=== PATIENT | male | born 1975 | race Caucasian/White ===

== ENCOUNTER 2017-03-30 20:28 | Emergency (ER) | payer OTHER ==
[~2017-03-30] VITALS: Ht 165.1 cm; Wt 102.3 kg
[2017-03-30 20:34] VITALS: TEMP 37.1; Ht 165.1 cm; Wt 102.3 kg
[2017-03-30] MEDS ORDERED: ASPIRIN 81 MG CHEW PO STA (20:54)
--- NOTE | 2017-03-30 20:58 | EMERGENCY ROOM VISIT NOTE ---
History Report prepared by Windy: Elizabeth Phillips Under the Supervision of: Dr. Meet Barrett M.D. First contact with patient: 20:43 Chief Complaint: CARDIAC ASSESSMENT Stated Complaint: CHEST PAIN, LEFT ARM PAIN- CARDIAC HX History of Present Illness The patient is a 41 year old male who presents to the Emergency Room with complaints of intermittent left sided chest pain beginning 3 weeks ago. The patient notes that his pain radiates to his left arm. The patient has a history of two heart attacks and stents in place. He had his stents put in at [place]. He reports that this pain doesn't feel like his previous heart attacks. His pain worsens when he holds his arm above his head. The patient reports that icy hot relieves his pain. He notes taking nitroglycerin and states it didn't help his pain. The patient was seen at [facility] 5 days ago where he had an EKG and chest X-ray done. The patient is on Plavix and denies missing doses. The patient smokes 10 cigarettes a day. He reports taking aspirin today. Source of History: patient Onset: 3 weeks ago Position: chest Quality: other (radiating) Timing: intermittent Modifying Factors (Worsening): other (moving his arm) Modifying Factors (Relieving): other (icy hot) Note: Pt notes the pain radiates to his left arm. Review of Systems See HPI for pertinent positives & negatives. A total of 10 systems reviewed and were otherwise negative. Past Medical & Surgical Medical Problems: (1) Heart attack Family History No pertinent family history stated. Social History Smoking Status: Current Every Day Smoker Marital Status: in relationship Current/Historical Medications Scheduled Aspirin (Aspirin Ec), 81 MG PO DAILY Atorvastatin (Lipitor), 80 MG PO DAILY Clopidogrel (Plavix), 75 MG PO DAILY Isosorbide Mononitrate (Isosorbide Mononitrate ER), 30 MG PO DAILY Lisinopril (Zestril), 2.5 MG PO DAILY Metoprolol Succinate (Metoprolol Succinate ER), 25 MG PO DAILY Allergies Coded Allergies: Tramadol (Verified Allergy, Intermediate, Nausea/Vomiting, 03/30/17) Ampicillin (Verified Allergy, Unknown, Unknown, 03/30/17) Physical Exam Vital Signs Date Time Temp Pulse Resp B/P (MAP) Pulse Ox O2 Delivery O2 Flow Rate FiO2 03/30/17 23:17 81 18 109/63 96 03/30/17 21:17 82 03/30/17 20:59 93 Room Air 03/30/17 20:54 95 Room Air 03/30/17 20:34 37.1 92 20 150/85 93 Room Air Physical Exam GENERAL: Patient is a healthy-appearing well-nourished male HEAD: Normocephalic atraumatic EYES: Ocular movements intact pupils equal and react to light OROPHARYNX mucous membranes are moist no exudates present no erythema or edema present NECK: Supple no nuchal rigidity CHEST: Good equal expansion. Reproducible pain when the patient moves his arm above his head. LUNGS: Clear and equal to auscultation CARDIAC: Normal S1 and S2 ABDOMEN: Soft nontender no guarding BACK: No CVA tenderness EXTREMITIES: No pain upon palpation normal muscle strength in all groups no clubbing cyanosis or edema NEURO: Patient is following commands and answering questions appropriately. Alert and oriented x3 Cranial Nerves 2-12 grossly intact Medical Decision & Procedures ER Provider Diagnostic Interpretation: Radiology results as stated below per my review and radiologist interpretation: CHEST ONE VIEW PORTABLE FINDINGS: Cardiomediastinal silhouette normal. Diffuse asymmetric density in the right lung may relate to overlapping soft tissue structures. Suggestion of mild bronchial wall thickening. No other focal infiltrate. No large pleural effusion or pneumothorax. Osseous structures normal. Upper abdomen normal. IMPRESSION: 1. Mild bronchial wall thickening could suggest bronchitis/viral bronchiolitis or reactive airways disease. No focal infiltrate to suggest pneumonia. Electronically signed by: Josr Messina M.D. (CHEST FOR PE) ANGIO WITH FINDINGS: Brush Washer topogram: Unremarkable. Pulmonary vasculature: The study is adequate for assessment of the pulmonary vascular tree. No filling defect within the pulmonary arteries to suggest embolus. Main pulmonary artery is mildly enlarged measuring 3.3 cm in maximal transverse dimension. No flattening of the interventricular septum. No intracardiac intracardiac filling defect. No reflux of contrast into the hepatic veins. Remaining chest: On soft tissue windows, bilateral gynecomastia. Normal thyroid. No axillary, supraclavicular, hilar, or mediastinal lymphadenopathy. Normal aorta. Normal heart size. Coronary artery calcification. No pericardial or pleural effusion. Upper abdomen normal. On lung windows, respiratory artifact mildly degrades evaluation of the lungs. Suggestion of groundglass centrilobular nodularity at the upper lobes. Mosaic attenuation could suggest small airways disease. No other focal infiltrate. Airways patent. On bone windows, normal osseous structures. IMPRESSION: 1. No evidence of pulmonary embolus. 2. Suggestion of groundglass centrilobular nodularity at the upper lobes. In the setting of a smoking history, this could suggest respiratory bronchiolitis. No convincing evidence of infection. 3. Mild enlargement of the main pulmonary artery could suggest pulmonary hypertension. Electronically signed by: Josr Messina M.D. Laboratory Results 03/30/17 20:50 Red Blood Count 4.66, Mean Corpuscular Volume 95.3, Mean Corpuscular Hemoglobin 33.0, Mean Corpuscular Hemoglobin Concent 34.7, Mean Platelet Volume 10.5, Neutrophils (%) (Auto) 77.0, Lymphocytes (%) (Auto) 14.1, Monocytes (%) (Auto) 7.0, Eosinophils (%) (Auto) 1.5, Basophils (%) (Auto) 0.2, Neutrophils # (Auto) 12.35, Lymphocytes # (Auto) 2.26, Monocytes # (Auto) 1.12, Eosinophils # (Auto) 0.24, Basophils # (Auto) 0.03 03/30/17 20:50 Test 03/30/17 20:50 03/30/17 21:05 03/30/17 21:06 03/30/17 22:41 White Blood Count 16.04 K/uL (4.8-10.8) Red Blood Count 4.66 M/uL (4.7-6.1) Hemoglobin 15.4 g/dL (14.0-18.0) Hematocrit 44.4 % (42-52) Mean Corpuscular Volume 95.3 fL (80-100) Mean Corpuscular Hemoglobin 33.0 pg (25-34) Mean Corpuscular Hemoglobin Concent 34.7 g/dl (32-36) Platelet Count 230 K/uL (130-400) Mean Platelet Volume 10.5 fL (7.4-10.4) Neutrophils (%) (Auto) 77.0 % Lymphocytes (%) (Auto) 14.1 % Monocytes (%) (Auto) 7.0 % Eosinophils (%) (Auto) 1.5 % Basophils (%) (Auto) 0.2 % Neutrophils # (Auto) 12.35 K/uL (1.4-6.5) Lymphocytes # (Auto) 2.26 K/uL (1.2-3.4) Monocytes # (Auto) 1.12 K/uL (0.11-0.59) Eosinophils # (Auto) 0.24 K/uL (0-0.5) Basophils # (Auto) 0.03 K/uL (0-0.2) RDW Standard Deviation 43.7 fL (36.4-46.3) RDW Coefficient of Variation 12.5 % (11.5-14.5) Immature Granulocyte % (Auto) 0.2 % Immature Granulocyte # (Auto) 0.04 K/uL (0.00-0.02) Est Creatinine Clear Calc Drug Dose 104.0 ml/min Estimated GFR () 103.1 Estimated GFR (Non- 89.0 BUN/Creatinine Ratio 15.0 (10-20) Calcium Level 8.8 mg/dl (8.5-10.1) Total Bilirubin 0.4 mg/dl (0.2-1) Direct Bilirubin 0.1 mg/dl (0-0.2) Aspartate Amino Transf (AST/SGOT) 19 U/L (15-37) Alanine Aminotransferase (ALT/SGPT) 34 U/L (12-78) Alkaline Phosphatase 84 U/L (45-117) Total Creatine Kinase 134 U/L (39-308) Creatine Kinase MB 0.8 ng/ml (0.5-3.6) Creatine Kinase MB Ratio 0.6 (0-3.0) Troponin I < 0.015 ng/ml (0-0.045) Total Protein 7.6 gm/dl (6.4-8.2) Albumin 3.7 gm/dl (3.4-5.0) Lipase 124 U/L (73-393) Bedside D-Dimer 211 ng/mlFEU (0-450) Bedside Hemoglobin 15.3 g/dl (14.0-18.0) Bedside Hematocrit 45 % (42-52) Bedside Sodium 141 mEq/L (135-144) Bedside Potassium 4.2 mEq/L (3.3-5.0) Bedside Chloride 102 mEq/L (101-112) Bedside Total CO2 29 mEq/l (24-31) Anion Gap 15.0 mmol/L (16-25) Bedside Blood Urea Nitrogen 19 mg/dl (7-18) Bedside Creatinine 1.0 mg/dl (0.6-1.3) Bedside Glucose (other) 108 mg/dl (70-99) Bedside Ionized Calcium (An) 1.17 mmol/l (1.12-1.32) Bedside Troponin I < 0.030 ng/ml (0-0.045) Labs reviewed by ED physician. Medications Administered Medications (Trade) Dose Ordered Sig/Ana Route Start Time Stop Time Status Last Admin Dose Admin Aspirin (Aspirin Chew) 324 mg NOW STAT PO 03/30/17 20:54 03/30/17 20:56 DC 03/30/17 21:02 324 MG Albuterol Sulfate (Ventolin 0.5% 2.5MG/0.5ML Neb) 2.5 mg NOW STAT INH 03/30/17 21:23 03/30/17 21:24 DC 03/30/17 21:57 2.5 MG Morphine Sulfate (MoRPHine SULFATE INJ) 10 mg NOW STAT IV 03/30/17 21:30 03/30/17 21:32 DC 03/30/17 21:57 10 MG Ondansetron HCl (Zofran Inj) 4 mg NOW STAT IV 03/30/17 21:30 03/30/17 21:32 DC 03/30/17 21:57 4 MG Albuterol Sulfate (Ventolin 0.5% 2.5MG/0.5ML Neb) 2.5 mg NOW STAT INH 03/30/17 22:24 03/30/17 22:25 DC 03/30/17 22:24 2.5 MG Ketorolac Tromethamine (Toradol Inj) 30 mg NOW STAT IV 03/30/17 22:56 03/30/17 22:57 DC 03/30/17 23:13 30 MG Hydromorphone HCl (Dilaudid Inj) 1 mg NOW STAT IV 03/30/17 22:56 03/30/17 22:57 DC 03/30/17 23:13 1 MG ECG Indication: chest pain Rate (beats per minute): 88 Rhythm: normal sinus Findings: no acute ischemic change, no ectopy ED Course 2043: Past medical records reviewed. The patient was evaluated in room A2. A complete history and physical examination was performed. 2053: Aspirin 324 mg PO. 2122: Albuterol Sulfate 2.5 mg INH. 2129: Zofran Inj 4 mg IV, Morphine Sulfate 10 mg IV. 2223: Albuterol Sulfate 2.5 mg INH. 2251: I offered admission to the patient, he declined and would like to go home. 2255: Dilaudid Inj 1 mg IV, Toradol Inj 30 mg IV. 2304: Upon reexamination the patient is resting. I discussed results and treatment plan with the patient. He verbalizes agreement and understanding. The patient is ready for discharge. Medical Decision Differential diagnosis: Etiologies such as cardiac ischemia, aortic dissection, pulmonary embolism, pneumonia, pneumothorax, musculoskeletal, infections, pericarditis, myocarditis , esophageal rupture, gastrointestinal, as well as others were entertained. This is a 41-year-old male who presents emergency department complaining of left shoulder pain. The patient was evaluated in [facility] for this chest pain/shoulder pain however they told him it was not cardiac related. In the emergency department the patient had CBC drawn along with serial EKGs and serial troponins. Serial EKGs as well as serial troponins are normal. The patient does have an elevation in his white blood count cell count however he is afebrile. The pain appears to be related to movement and it appears to be related to the patient's rotator cuff. For this reason I did place the patient in a sling. He was given 324 mg of aspirin, morphine, Dilaudid for the pain. He was sent for a chest CT which did not show any acute process. I offered admission to the patient however he wishes to be discharged home. I strongly recommended he follow-up with cardiology at [facility] [address] this week and to have no strenuous activity until follow-up. I also recommended that the patient follow- up with orthopedics. Family was in agreement with the treatment plan. Blood Pressure Screening Patient's blood pressure: Elevated blood pressure Blood pressure disposition: Referred to PCP Impression Primary Impression: Shoulder pain, left Scribe Attestation The scribe's documentation has been prepared under my direction and personally reviewed by me in its entirety. I confirm that the note above accurately reflects all work, treatment, procedures, and medical decision making performed by me. Departure Information Dispostion Home / Self-Care Referrals Cody Reynolds PA-C (PCP) Forms IMPORTANT VISIT INFORMATION Patient Instructions ED Shoulder Pain Isis FERNANDEZ [facility] Additional Instructions Follow up with DR Kiran's office this week (Cards) Follow up with Dr Olson (Ortho) You were found to have an elevated blood pressure today (>120 sytolic or >90 diastolic). Per medicare guidelines, you need to follow up with this blood pressure screening with your Primary Care Physician (PCP). For a new PCP call [phone]. You received narcotic or benzodiazepene medication while in the emergency room today. This is an addictive medication that may cause drowziness as well as constipation. Do not drive, operate heavy machinery, or drink alcohol under the influence of this medication. You have been examined and treated today on an emergency basis only. This is not a substitute for, or an effort to provide, complete comprehensive medical care. It is impossible to recognize and treat all injuries or illnesses in a single emergency department visit. It is therefore important that you follow up closely with Dr Reynolds. Call as soon as possible for an appointment. Thank you for your time and consideration. I look forward to speaking with you again soon. Please don't hesitate to call us if you have any questions. Problem Qualifiers Primary Impression: Shoulder pain, left Chronicity: acute Qualified Codes: M25.512 - Pain in left shoulder
[2017-03-30 20:59] VITALS: O2SAT 93
[2017-03-30 21:12] LABS: BASO % 0.2 %; BASO ABS # 0.03 K/uL (0-0.2); COMPLETE YES; EOS % 1.5 %; HEMATOCRIT 44.4 % (42-52); IG% 0.2 %; LYMPH % 14.1 %; LYMPH ABS # 2.26 K/uL (1.2-3.4); MEAN CELL VOLUME 95.3 fL (80-100); MEAN CORPUSCULAR HGB CONC 34.7 g/dl (32-36); MEAN PLATELET VOLUME 10.5 fL (7.4-10.4); PLATELET COUNT 230 K/uL (130-400); RED BLOOD COUNT 4.66 M/uL (4.7-6.1); WHITE BLOOD COUNT 16.04 K/uL (4.8-10.8)
[2017-03-30 21:19] LABS: ISTAT HEMOGLOBIN 15.3 g/dl (14.0-18.0); ISTAT IONIZED CALCIUM 1.17 mmol/l (1.12-1.32)
[2017-03-30 21:22] LABS: ALT/SGPT 34 U/L (12-78); BLOOD UREA NITROGEN 16 mg/dl (7-18); CALCIUM 8.8 mg/dl (8.5-10.1); CARBON DIOXIDE 27 mmol/L (21-32); CHLORIDE 105 mmol/L (98-107); CREATININE 1.05 mg/dl (0.60-1.40); GLUCOSE 113 mg/dl (70-99); POTASSIUM 4.1 mmol/L (3.5-5.1); SODIUM 141 mmol/L (136-145)
[2017-03-30] MEDS ORDERED: ALBUTEROL 0.5% NEB SOLN 2.5 MG/0.5 ML VIAL INH STA ×2 (21:23→22:24)
[2017-03-30 21:27] LABS: ALKALINE PHOSPHATASE 84 U/L (45-117); AST/SGOT 19 U/L (15-37); CKMB/CK RATIO 0.6 (0-3.0)
--- NOTE | 2017-03-30 21:29 | DIAGNOSTIC IMAGING REPORT ---
CHEST ONE VIEW PORTABLE CLINICAL HISTORY: 41 years-old Male presenting with CHEST PAIN. TECHNIQUE: Portable upright AP view of the chest was obtained. COMPARISON: None. FINDINGS: Cardiomediastinal silhouette normal. Diffuse asymmetric density in the right lung may relate to overlapping soft tissue structures. Suggestion of mild bronchial wall thickening. No other focal infiltrate. No large pleural effusion or pneumothorax. Osseous structures normal. Upper abdomen normal. IMPRESSION: 1. Mild bronchial wall thickening could suggest bronchitis/viral bronchiolitis or reactive airways disease. No focal infiltrate to suggest pneumonia. Electronically signed by: Josr Messina M.D. 03/30/2017 9:28 PM Dictated Date/Time: 03/30/2017 9:26 PM
[2017-03-30] MEDS ORDERED: MoRPHine SULFATE 10 MG/ML CARP/VIAL IV STA (21:30)
[2017-03-30] MEDS ORDERED: ONDANSETRON INJ 2 MG/ML 2 ML VIAL IV STA (21:30)
--- NOTE | 2017-03-30 22:19 | DIAGNOSTIC IMAGING REPORT ---
(CHEST FOR PE) ANGIO WITH CLINICAL HISTORY: 41 years-old Male presenting with ^Pt c/o left sided chest pain. TECHNIQUE: Multidetector CT angiography of the chest was performed after administration of intravenous contrast. 3-D volumetric and/or maximum intensity projection (MIP) images were subsequently reconstructed for review. IV contrast: 105 mL of Optiray 320. A dose lowering technique was used consistent with the principles of ALARA (as low as reasonably achievable). COMPARISON: Chest x-ray from earlier the same day. CT DOSE (mGy.cm): The estimated cumulative dose is 698.51 mGy.cm. FINDINGS: Corn Chip Maker topogram: Unremarkable. Pulmonary vasculature: The study is adequate for assessment of the pulmonary vascular tree. No filling defect within the pulmonary arteries to suggest embolus. Main pulmonary artery is mildly enlarged measuring 3.3 cm in maximal transverse dimension. No flattening of the interventricular septum. No intracardiac intracardiac filling defect. No reflux of contrast into the hepatic veins. Remaining chest: On soft tissue windows, bilateral gynecomastia. Normal thyroid. No axillary, supraclavicular, hilar, or mediastinal lymphadenopathy. Normal aorta. Normal heart size. Coronary artery calcification. No pericardial or pleural effusion. Upper abdomen normal. On lung windows, respiratory artifact mildly degrades evaluation of the lungs. Suggestion of groundglass centrilobular nodularity at the upper lobes. Mosaic attenuation could suggest small airways disease. No other focal infiltrate. Airways patent. On bone windows, normal osseous structures. IMPRESSION: 1. No evidence of pulmonary embolus. 2. Suggestion of groundglass centrilobular nodularity at the upper lobes. In the setting of a smoking history, this could suggest respiratory bronchiolitis. No convincing evidence of infection. 3. Mild enlargement of the main pulmonary artery could suggest pulmonary hypertension. Electronically signed by: Josr Messina M.D. 03/30/2017 10:18 PM Dictated Date/Time: 03/30/2017 10:06 PM
[2017-03-30] MEDS ORDERED: ATOR-26 PO (22:50)
[2017-03-30] MEDS ORDERED: LISI-789 PO (22:50)
[2017-03-30] MEDS ORDERED: CLOP1TAB15 PO (22:50)
[2017-03-30] MEDS ORDERED: TPRSR/25 PO (22:50)
[2017-03-30] MEDS ORDERED: ASPI81TA28 PO (22:50)
[2017-03-30] MEDS ORDERED: IMDSR30 PO (22:50)
[2017-03-30] MEDS ORDERED: KETOROLAC TROMETHAMINE 30 MG/ML VIAL IV STA (22:56)
[2017-03-30] MEDS ORDERED: HYDROmorphone INJ 1 MG/ML SYR IV STA (22:56)
[2017-03-30 23:17] VITALS: BP 109/63; PULSE 81; O2SAT 96
== END 2017-03-30 23:41 | disposition home or self-care (01) ==
LOC: C.EDB 20:30 → C.EDA 23:41
DX: M25.512 Pain in left shoulder (principal); R07.9 Chest pain, unspecified; M79.602 Pain in left arm; I25.2 Old myocardial infarction; Z79.02 Long term (current) use of antithrombotics/antiplatelets; Z79.82 Long term (current) use of aspirin; Z79.899 Other long term (current) drug therapy; F17.200 Nicotine dependence, unspecified, uncomplicated